=== PATIENT | female | born 2005 | race Two or more races ===

== ENCOUNTER 2025-02-14 13:18 | Emergency (ER) | payer OTHER ==
[~2025-02-14] VITALS: Ht 154.9 cm; Wt 72.6 kg
[2025-02-14] MEDS ORDERED: CEFTRIAXONE SODIUM 1,000 MG VIAL IM ONE (15:00)
[2025-02-14] MEDS ORDERED: TETANUS & DIPHTHERIA TOX,ADULT 0.5 ML VIAL IM ONE (15:00)
[2025-02-14] MEDS ORDERED: LIDOCAINE HCL 1% 10ML VIAL PERCUT ONE (15:00)
[2025-02-14] MEDS ORDERED: CEFADROXIL500 MG PO (16:41)
[2025-02-14 17:09] VITALS: BP 115/73; O2SAT 98
== END 2025-02-14 17:11 ==
LOC: ER 13:18
DX: S81.021A Laceration with foreign body, right knee, initial encounter (principal); W18.39XA Other fall on same level, initial encounter; Y93.89 Activity, other specified; Y92.821 Forest as the place of occurrence of the external cause; Y99.9 Unspecified external cause status; Z88.0 Allergy status to penicillin

== ENCOUNTER 2025-02-23 16:41 | Emergency (ER) | payer OTHER ==
[~2025-02-23] VITALS: Ht 154.9 cm; Wt 72.6 kg
[~2025-02-23 16:41] MED LIST: CEFADROXIL500 MG PO
== END 2025-02-23 19:34 | disposition home or self-care (01) ==
LOC: ER 16:41
DX: Z48.02 Encounter for removal of sutures (principal); Z88.0 Allergy status to penicillin